=== PATIENT | female | born 1995 | race Caucasian/White ===

== ENCOUNTER 2018-04-11 10:47 | Emergency (ER) | payer MEDICAID ==
[~2018-04-11] VITALS: Ht 165.1 cm; Wt 83.0 kg
[2018-04-11] MEDS ORDERED: DICYCLOMINE 10 MG/5 ML ORAL SYR PO STA (11:44)
[2018-04-11] MEDS ORDERED: MAGNESIUM/ALUMINUM HYDROXIDE/SIMETHICONE 30ML UDC PO STA (11:44)
[2018-04-11] MEDS ORDERED: ONDANSETRON 4MG ODT PO STA (11:44)
[2018-04-11] MEDS ORDERED: VISCOUS LIDOCAINE 2% 15 ML UDC PO STA (11:44)
[2018-04-11] MEDS ORDERED: SODIUM CHLORIDE 0.9% 1,000 ML IV ONE (11:44)
[2018-04-11] MEDS ORDERED: ONDANSETRON HCL 4MG/2ML INJ IV ONE (12:15)
[2018-04-11 12:23] LABS: CLARITY URINE CLOUDY (CLEAR); COLOR URINE DARK YELLOW (YELLOW); KETONES URINE 4+ (NEGATIVE); LEUKOCYTE ESTERASE URINE NEGATIVE (NEGATIVE); NITRITE URINE NEGATIVE (NEGATIVE); OCCULT BLOOD URINE 2+ (NEGATIVE); PH URINE 6.5 (4.5-8.0); PROTEIN URINE 1+ (NEGATIVE); SPECIFIC GRAVITY URINE 1.036 (1.005-1.030)
[2018-04-11 12:31] LABS: BASOPHILS % 0.6 % (0.0-2.0); EOSINOPHILS % 0.6 % (0.0-5.0); HEMATOCRIT. 42.5 % (36.0-48.0); HEMOGLOBIN. 14.8 g/dL (12.0-16.0); LYMPHOCYTES % 22.4 % (20.0-50.0); MEAN CORPUSCULAR HEMOGLOBIN 31.5 pg (28.0-32.0); MEAN CORPUSCULAR VOLUME 90.6 fL (81.0-99.0); MEAN PLATELET VOLUME 8.4 fl (7.4-10.4); MONOCYTES % 8.7 % (2.0-8.0); NEUTROPHILS % 67.7 % (40.0-76.0); PLATELET 298 x1000/uL (130-400); RED BLOOD CELL COUNT 4.69 mill/uL (4.2-5.4); RED CELL DISTRIBUTION WIDTH 13.4 % (11.6-14.6)
[2018-04-11 12:32] LABS: CHLORIDE 98 mEq/L (98-107)
[2018-04-11 12:38] LABS: ETHANOL BLOOD < 10 mg/dL
[2018-04-11 12:43] LABS: HCG SCREEN NEGATIVE
[2018-04-11 13:06] LABS: *AMPHETAMINES SCREEN URINE NEGATIVE (NEGATIVE); *BARBITURATES SCREEN URINE NEGATIVE (NEGATIVE); *BENZODIAZEPINES SCREEN URINE NEGATIVE (NEGATIVE); *COCAINE SCREEN URINE NEGATIVE (NEGATIVE)
[2018-04-11 13:07] LABS: METHADONE URINE SCREEN NEGATIVE (NEGATIVE); OPIATES URINE SCREEN NEGATIVE (NEGATIVE); PHENCYCLIDINE URINE SCREEN NEGATIVE (NEGATIVE)
[2018-04-11 13:09] LABS: CANNABINOID URINE SCREEN PRESUMTIVE POSITIVE (NEGATIVE)
[2018-04-11 14:20] VITALS: BP 134/76
== END 2018-04-11 14:51 | disposition home or self-care (01) ==
LOC: ER 11:27
DX: F12.188 Cannabis abuse with other cannabis-induced disorder (principal); F17.200 Nicotine dependence, unspecified, uncomplicated; F12.10 Cannabis abuse, uncomplicated; R19.7 Diarrhea, unspecified; R10.13 Epigastric pain
CPT/HCPCS: 36415; 80053; 80305; 81003; 81025; 83690; 84703; 85025; 96361; 96374; 99285; G0482; J2405; J7030; Z7610

== ENCOUNTER 2018-04-11 19:27 | Emergency (ER) | payer MEDICAID ==
[~2018-04-11] VITALS: Ht 165.1 cm; Wt 82.0 kg
[2018-04-11] MEDS ORDERED: SODIUM CHLORIDE 0.9% 1,000 ML IV ONE (22:10)
[2018-04-11] MEDS ORDERED: KETOROLAC 30MG/ML VIAL IV STA (22:10)
[2018-04-11] MEDS ORDERED: ONDANSETRON HCL 4MG/2ML INJ IV STA (22:10)
[2018-04-11] MEDS ORDERED: FAMOTIDINE 20MG/2ML VIAL IV STA (22:10)
[2018-04-11 22:42] LABS: BASOPHILS % 0.7 % (0.0-2.0); EOSINOPHILS % 0.7 % (0.0-5.0); HEMATOCRIT. 42.8 % (36.0-48.0); HEMOGLOBIN. 14.6 g/dL (12.0-16.0); LYMPHOCYTES % 15.6 % (20.0-50.0); MEAN CORPUSCULAR HEMOGLOBIN 31.1 pg (28.0-32.0); MEAN CORPUSCULAR VOLUME 91.2 fL (81.0-99.0); MEAN PLATELET VOLUME 8.4 fl (7.4-10.4); MONOCYTES % 10.2 % (2.0-8.0); NEUTROPHILS % 72.8 % (40.0-76.0); PLATELET 301 x1000/uL (130-400); RED BLOOD CELL COUNT 4.69 mill/uL (4.2-5.4); RED CELL DISTRIBUTION WIDTH 13.5 % (11.6-14.6)
[2018-04-11 22:47] LABS: CHLORIDE 96 mEq/L (98-107)
[2018-04-11 23:00] LABS: CLARITY URINE CLOUDY (CLEAR); COLOR URINE DARK YELLOW (YELLOW); KETONES URINE 4+ (NEGATIVE); LEUKOCYTE ESTERASE URINE TRACE (NEGATIVE); NITRITE URINE NEGATIVE (NEGATIVE); OCCULT BLOOD URINE 3+ (NEGATIVE); PROTEIN URINE 1+ (NEGATIVE); SPECIFIC GRAVITY URINE 1.038 (1.005-1.030)
[2018-04-11 23:09] LABS: HCG SCREEN NEGATIVE
[2018-04-11 23:11] LABS: *AMPHETAMINES SCREEN URINE NEGATIVE (NEGATIVE); *BARBITURATES SCREEN URINE NEGATIVE (NEGATIVE); *BENZODIAZEPINES SCREEN URINE NEGATIVE (NEGATIVE)
[2018-04-11 23:12] LABS: *COCAINE SCREEN URINE NEGATIVE (NEGATIVE); METHADONE URINE SCREEN NEGATIVE (NEGATIVE); OPIATES URINE SCREEN NEGATIVE (NEGATIVE); PHENCYCLIDINE URINE SCREEN NEGATIVE (NEGATIVE)
[2018-04-11 23:21] LABS: CANNABINOID URINE SCREEN PRESUMTIVE POSITIVE (NEGATIVE)
[2018-04-12] MEDS ORDERED: ONDANSETRON HCL 4MG/2ML INJ IV ONE (00:30)
[2018-04-12] MEDS ORDERED: POTASSIUM CHLORIDE 20MEQ TABLET SR PO ONE (01:00)
[2018-04-12 01:20] VITALS: BP 102/64
== END 2018-04-12 01:20 | disposition home or self-care (01) ==
LOC: ER 20:48
DX: R10.13 Epigastric pain (principal); E87.6 Hypokalemia; F12.90 Cannabis use, unspecified, uncomplicated
CPT/HCPCS: 36415; 76705; 80053; 80305; 81003; 81025; 83690; 84703; 85025; 96361; 96374; 96375; 96376; 99285; J1885; J2405; J3490; J7030; Z7610

== ENCOUNTER 2018-04-12 14:38 | Emergency (ER) | payer MEDICAID ==
[~2018-04-12] VITALS: Ht 167.6 cm; Wt 76.0 kg
[2018-04-12] MEDS ORDERED: MORPHINE SULFATE 4 MG/ML CPJ (NOT FOR IM USE) IV STA (15:40)
[2018-04-12] MEDS ORDERED: ONDANSETRON HCL 4MG/2ML INJ IV STA (15:40)
[2018-04-12] MEDS ORDERED: SODIUM CHLORIDE 0.9% 1,000 ML IV ONE (15:40)
[2018-04-12 16:33] LABS: CHLORIDE 103 mEq/L (98-107)
[2018-04-12 16:34] LABS: INR 1.2; PROTHROMBIN TIME 11.8 sec (9.1-11.1)
[2018-04-12 16:37] LABS: HCG SCREEN NEGATIVE
[2018-04-12 16:41] LABS: BASOPHILS % 0.8 % (0.0-2.0); EOSINOPHILS % 2.3 % (0.0-5.0); HEMATOCRIT. 39.1 % (36.0-48.0); HEMOGLOBIN. 13.6 g/dL (12.0-16.0); LYMPHOCYTES % 29.7 % (20.0-50.0); MEAN CORPUSCULAR HEMOGLOBIN 31.4 pg (28.0-32.0); MEAN CORPUSCULAR VOLUME 90.3 fL (81.0-99.0); MEAN PLATELET VOLUME 8.6 fl (7.4-10.4); MONOCYTES % 11.4 % (2.0-8.0); NEUTROPHILS % 55.8 % (40.0-76.0); PLATELET 264 x1000/uL (130-400); RED BLOOD CELL COUNT 4.33 mill/uL (4.2-5.4); RED CELL DISTRIBUTION WIDTH 13.6 % (11.6-14.6)
[2018-04-12] MEDS ORDERED: POTASSIUM CHLORIDE INJ 40 MEQ in DEXT 5% WATER 250 ML IV ONE (17:00)
[2018-04-12] MEDS ORDERED: IOHEXOL-300 100 ML BOTTLE ONE (18:02)
[2018-04-12 18:48] LABS: CLARITY URINE CLEAR (CLEAR); COLOR URINE YELLOW (YELLOW); KETONES URINE 2+ (NEGATIVE); LEUKOCYTE ESTERASE URINE NEGATIVE (NEGATIVE); NITRITE URINE NEGATIVE (NEGATIVE); OCCULT BLOOD URINE 2+ (NEGATIVE); PH URINE 6.5 (4.5-8.0); PROTEIN URINE TRACE (NEGATIVE); SPECIFIC GRAVITY URINE 1.017 (1.005-1.030); UROBILINOGEN URINE 0.2 E.U./dL (0.2-1.0)
[2018-04-12] MEDS ORDERED: POTASSIUM CHLORIDE 20MEQ TABLET SR PO ONE (19:15)
[2018-04-12] MEDS ORDERED: FAMOTIDINE 20MG/2ML VIAL IV ONE (19:15)
[2018-04-12] MEDS ORDERED: ONDANSETRON HCL 4MG/2ML INJ IV ONE (19:15)
[2018-04-12 20:02] VITALS: BP 117/68
== END 2018-04-12 20:07 | disposition home or self-care (01) ==
LOC: ER 15:10
DX: F12.188 Cannabis abuse with other cannabis-induced disorder (principal); R10.13 Epigastric pain; R03.0 Elevated blood-pressure reading, without diagnosis of hypertension
CPT/HCPCS: 36415; 74177; 80053; 81003; 81025; 83690; 84703; 85025; 85610; 96361; 96365; 96366; 96375; 96376; 99285; J2270; J2405; J3480; J3490; J7030; Q9967; J7060

== ENCOUNTER 2019-03-01 00:11 | Emergency (ER) | payer MEDICAID | END 2019-03-01 01:17 | disposition left against medical advice (07) | LOC: ER 00:11 | DX: R11.0 Nausea (principal); Z53.21 Procedure and treatment not carried out due to patient leaving prior to being seen by health care provider ==

== ENCOUNTER 2019-06-15 13:20 | Emergency (ER) | payer MEDICAID ==
[~2019-06-15] VITALS: Ht 162.6 cm; Wt 64.0 kg
[2019-06-15 13:36] VITALS: BP 125/69
[2019-06-15] MEDS ORDERED: IBUPROFEN 600MG TABLET PO STA (13:48)
== END 2019-06-15 14:56 | disposition home or self-care (01) ==
LOC: ER 13:20
DX: M79.641 Pain in right hand (principal); M25.531 Pain in right wrist
CPT/HCPCS: 73110; 73130; 81025; 99283

== ENCOUNTER 2019-08-01 17:07 | Emergency (ER) | payer MEDICAID, MEDICARE ==
[~2019-08-01] VITALS: Ht 165.1 cm; Wt 73.0 kg
[2019-08-01] MEDS ORDERED: PHENYLEPHRINE/SHK LV/MO/PET,WH RECTAL OINT 57GM PR STA (21:04)
[2019-08-01] MEDS ORDERED: KETOROLAC 60MG/2ML VIAL IM ONE (21:15)
[2019-08-01 21:25] VITALS: BP 120/82
== END 2019-08-01 21:39 | disposition home or self-care (01) ==
LOC: ER 17:07
DX: K64.9 Unspecified hemorrhoids (principal); F17.210 Nicotine dependence, cigarettes, uncomplicated; Z71.6 Tobacco abuse counseling
CPT/HCPCS: 96372; 99283; 99406; J1885; Z7610

== ENCOUNTER 2019-09-18 22:51 | Emergency (ER) | payer MEDICARE ==
[~2019-09-18] VITALS: Ht 167.6 cm; Wt 69.0 kg
[2019-09-18] MEDS ORDERED: DOXYCYCLINE HYCLATE 100MG CAPSULE PO ONE (23:30)
[2019-09-18] MEDS ORDERED: TETANUS, DIPHTHERIA, PERTUSSIS VAC/PF 0.5ML (>7YR OLD) IM ONE (23:30)
[2019-09-19 01:23] VITALS: BP 141/88
== END 2019-09-19 01:28 | disposition home or self-care (01) ==
LOC: ER 22:51
DX: S10.81XA Abrasion of other specified part of neck, initial encounter (principal); S60.410A Abrasion of right index finger, initial encounter; R51 Headache; Y07.03 Male partner, perpetrator of maltreatment and neglect; Y08.89XA Assault by other specified means, initial encounter; Y04.2XXA Assault by strike against or bumped into by another person, initial encounter; W55.03XA Scratched by cat, initial encounter; Y93.89 Activity, other specified; Y92.410 Unspecified street and highway as the place of occurrence of the external cause; Z23 Encounter for immunization
CPT/HCPCS: 81025; 90471; 90715; 99285

== ENCOUNTER 2021-10-29 01:17 | Emergency (ER) | payer MEDICAID, MEDICARE ==
[~2021-10-29] VITALS: Ht 165.1 cm; Wt 101.6 kg
[2021-10-29 01:45] VITALS: BP 117/76
[2021-10-29] MEDS ORDERED: DOXY100T28 MT (02:08)
[2021-10-29] MEDS ORDERED: DOXYCYCLINE HYCLATE 100MG CAPSULE PO ONE (02:15)
[2021-10-29] MEDS ORDERED: CEFTRIAXONE SODIUM 500 MG/VIAL IM ONE (02:15)
== END 2021-10-29 02:25 | disposition home or self-care (01) ==
LOC: ER 01:17
DX: Z20.2 Contact with and (suspected) exposure to infections with a predominantly sexual mode of transmission (principal); Z88.0 Allergy status to penicillin
CPT/HCPCS: 96372; 99283; J0696

== ENCOUNTER 2022-04-02 10:04 | Emergency (ER) | payer MEDICAID ==
[~2022-04-02] VITALS: Ht 172.7 cm; Wt 89.0 kg
[~2022-04-02 10:04] MED LIST: DOXY100T28 MT
[2022-04-02 10:10] VITALS: BP 165/107
[2022-04-02] MEDS ORDERED: DOXY100C5 MT (11:39)
[2022-04-02] MEDS ORDERED: CEPH500C2 MT (11:39)
[2022-04-02] MEDS ORDERED: CEFTRIAXONE SODIUM 500 MG/VIAL IM ONE (11:45)
[2022-04-02] MEDS ORDERED: LIDOCAINE HCL 1% 20ML VIAL (Pyxis) INJ INFIL STA (12:07)
[2022-04-02] MEDS ORDERED: LIDOCAINE HCL 1% 20ML VIAL (Pyxis) INJ INFIL ONE (12:15)
[2022-04-02] MEDS ORDERED: LIDOCAINE HCL 1% 10 MG/ML 10ML VIAL IJ NR (12:15)
== END 2022-04-02 12:54 | disposition home or self-care (01) ==
LOC: ER 10:04
DX: K02.9 Dental caries, unspecified (principal); Z20.2 Contact with and (suspected) exposure to infections with a predominantly sexual mode of transmission; Z88.0 Allergy status to penicillin
CPT/HCPCS: 81025; 96372; 99283; J0696; J3490

== ENCOUNTER 2024-10-27 23:26 | Emergency (ER) | payer MEDICAID ==
[~2024-10-27] VITALS: Ht 167.6 cm; Wt 68.0 kg
[~2024-10-27 23:26] MED LIST changes: +CEPH500C2 MT; +DOXY100C5 MT
[2024-10-28 00:16] VITALS: TEMP 36.8; O2SAT 100
[2024-10-28] MEDS ORDERED: CEFP200T13 MT (02:24)
[2024-10-28 02:43] VITALS: BP 131/87; PULSE 80; RESP 16; O2SAT 99
== END 2024-10-28 02:46 | disposition home or self-care (01) ==
LOC: ER 23:26
DX: L03.213 Periorbital cellulitis (principal); Z88.0 Allergy status to penicillin
CPT/HCPCS: 99283

== ENCOUNTER 2025-05-18 23:29 | Emergency (ER) | payer MEDICAID ==
[~2025-05-18 23:29] MED LIST changes: +CEFP200T13 MT
[2025-05-18 23:36] VITALS: PULSE 151; RESP 18; O2SAT 97
[2025-05-24] MEDS ORDERED: AMOX1TAB16 MT (07:31)
[2025-05-24] MEDS ORDERED: SULF1TAB47 MT (07:31)
== END 2025-05-19 00:29 | disposition left against medical advice (07) ==
LOC: ER 23:29
DX: L02.415 Cutaneous abscess of right lower limb (principal)
CPT/HCPCS: 99281